=== PATIENT | male | born 1945 | race Caucasian/White ===

== ENCOUNTER 2016-07-11 11:36 | Day surgery (SDC) | payer MEDICARE ==
[2016-07-11] MEDS ORDERED: FENTANYL PF 100MCG/2ML VIAL IV ONE (14:00)
[2016-07-11] MEDS ORDERED: PROPOFOL 10 MG/ML VIAL IV ONE (14:00)
[2016-07-11] MEDS ORDERED: LIDOCAINE 2% MDV (20MG/ML) 20ML VIAL IV ONE (14:00)
--- NOTE | 2016-07-13 15:18 | Operative Note ---
DATE OF SURGERY: 07/11/2016. REFERRING PHYSICIAN: Chris Jewell D.O. PROCEDURE: Colonoscopy to the cecum. INDICATION: Colorectal cancer screening. The patient has had a polyp in the remote past which was not of adenomatous type. Colonoscopy is performed at this time for screening purposes. ANESTHESIA: Intravenous sedation was administered by the Department of Anesthesiology and included Diprivan titrated to effect. PROCEDURE: Following informed consent from this alert individual, including a discussion of the risks and benefits of the procedure and an opportunity for the patient to ask questions, the patient was in the left lateral decubitus position. A digital rectal exam was performed. No abnormalities were detected. Following this, the Olympus PCF-180 video colonoscope was inserted into the rectum without resistance. The rectal mucosa had a normal appearance with normal folds and distensibility. The colonoscope was advanced up through the colon to the level of the cecum without much difficulty. Throughout the bowel, the mucosa appeared normal, folds were normal, and the bowel was fairly distensible. The cecum was defined by noting the appendiceal orifice and cecal pouch. Scattered diverticula were noted throughout the left colon. The colon preparation was good. From the base of the cecum, the colonoscope was slowly withdrawn back through the bowel re-examining the mucosa upon withdrawal. Scattered diverticula were noted in the left colon. No other changes were appreciated. Retroflexion in the rectum demonstrated small internal hemorrhoids. The endoscope was then straightened and removed. The patient tolerated the procedure well and was returned to the recovery area in stable condition. IMPRESSION: 1. Left colonic diverticulosis. 2. Small internal hemorrhoids. RECOMMENDATIONS: The patient was advised to have a recheck colonoscopy in ten years' time or sooner if problems arise. Follow up will be with Dr. Uche Jewell. HANSEL AGUILAR D.O. Date Time JOB NUMBER: [id number] cc: Chris Jewell D.O. [facility]
== END 2016-07-11 14:23 | disposition home or self-care (01) ==
LOC: HOP 11:36
PROVIDERS: ATTEND Internal Medicine Gastroenterology
DX: Z12.11 Encounter for screening for malignant neoplasm of colon (principal); Z86.010 Personal history of colon polyps; K57.30 Diverticulosis of large intestine without perforation or abscess without bleeding; K64.8 Other hemorrhoids
CPT/HCPCS: 00810; G0121